=== PATIENT | male | born 1940 | race Caucasian/White ===

== ENCOUNTER → 2018-06-05 | Outpatient (CLI) | payer MEDICARE, BC ==
[~2018-06-05] MED LIST: ALBU90OI INH; ALPR.5 PO; ASCO500 PO; ASPI81CH PO; ASPI81EC; ASPI81EC PO; CALCAVITDA PO; CALGLU500; CEPH500 PO; CYCL10 PO; FISH1000 PO; FOLI1 PO; FOLI400; GLIP5 PO; IBUP600 PO; IRBE150 PO; LEVSOD100; LEVSOD100 PO; LEVSOD125 PO; LISI10; LISI20 PO; LORA1 PO; LOSA25 PO; METF500; METF500 PO; MULVITA; MULVITMIND PO; NIAC250ER; Norco 5-325 Ta1 EACH PO; PRAV20; PRAV20 PO; PYRI100 PO; RXLORA1 PO; SITA100T2 PO; TOCO400; TOCO400 PO; [UNRECOGNIZED DRUG - CODE] PO
== END | disposition home or self-care (01) ==
LOC: LAB SHORT 11:40 → PLD 11:40
DX: D22.4 Melanocytic nevi of scalp and neck (principal)
CPT/HCPCS: 88305

== ENCOUNTER 2018-11-28 05:37 | Emergency (ER) | payer MEDICARE, BC ==
[~2018-11-28] VITALS: Ht 172.7 cm; Wt 82.5 kg
[~2018-11-28 05:37] MED LIST changes: -ASPI81CH PO; -LEVSOD125 PO; -PRAV20 PO; -[UNRECOGNIZED DRUG - CODE] PO
[2018-11-28 06:16] LABS: BASOPHILS ABSOLUTE AUTO 0.04 K/mm3 (0.00-0.23); BASOPHILS PERCENT AUTO 0 % (0-2); EOSINOPHILS ABSOLUTE AUTO 0.25 K/mm3 (0.00-0.68); EOSINOPHILS PERCENT AUTO 2 % (0-6); Hematocrit 43.6 % (37.0-53.0); Hemoglobin 15.1 g/dL (13.5-17.5); IMMATURE GRAN ABSOLUTE AUTO 0.05 K/mm3 (0.00-0.10); IMMATURE GRAN PERCENT AUTO 0 % (0-1); LYMPHOCYTES ABSOLUTE AUTO 0.72 K/mm3 (0.84-5.20); LYMPHOCYTES PERCENT AUTO 6 % (21-46); MONOCYTES ABSOLUTE AUTO 0.92 K/mm3 (0.16-1.47); MONOCYTES PERCENT AUTO 8 % (4-13); Mean Corpuscular HGB 31.1 pg (26.0-34.0); Mean Corpuscular HGB Conc 34.6 g/dL (31.5-36.5); Mean Corpuscular Volume 90 fL (80-100); Mean Platelet Volume 9.2 fL (9.1-12.4); NEUTROPHILS ABSOLUTE AUTO 9.79 K/mm3 (1.96-9.15); NEUTROPHILS PERCENT AUTO 83 % (41-73); Platelet Count 222 K/mm3 (150-400); RDW Standard Deviation 39.6 fL (35.1-46.3); Red Blood Cell Count 4.85 M/mm3 (4.30-5.90); White Blood Cell Count 11.77 K/mm3 (4.00-11.30)
[2018-11-28 06:34] LABS: Alanine Aminotransfer (ALT/SGP 26 U/L (12-78); Albumin, Blood 3.4 g/dL (3.4-5.0); Albumin/Globulin Ratio 1.1 (0.8-1.8); Alk Phos 51 U/L (50-136); Anion Gap 7 mmol/L (6-16); Aspartate Aminotrans (AST/SGOT 14 U/L (12-37); Bilirubin, Total 0.5 mg/dL (0.1-1.0); Blood Urea Nitrogen 20 mg/dL (8-24); Bun/Creatinine Ratio 18.5 (12.0-20.0); CO2, Blood 30 mmol/L (21-32); Calcium, Blood 8.2 mg/dL (8.5-10.1); Chloride, Blood 100 mmol/L (98-108); Creatinine, Blood 1.08 mg/dL (0.60-1.20); Globulin, Blood 3.1 g/dL (2.2-4.0); Glomerular Filtration Rate >60 (60-); Glucose, Blood 280 mg/dL (70-99); Potassium, Blood 3.8 mmol/L (3.5-5.5); Sodium, Blood 137 mmol/L (136-145); Total Protein, Blood 6.5 g/dL (6.4-8.2); Troponin I <0.015 ng/mL (0.000-0.040)
[2018-11-28] MEDS ORDERED: ALBU90OI6 INH (07:05)
== END 2018-11-28 07:50 | disposition home or self-care (01) ==
LOC: ER 05:37
PROVIDERS: Emergency Medicine
DX: J40 Bronchitis, not specified as acute or chronic (principal); E11.9 Type 2 diabetes mellitus without complications; I10 Essential (primary) hypertension; Z88.2 Allergy status to sulfonamides; Z79.82 Long term (current) use of aspirin; Z79.899 Other long term (current) drug therapy; Z79.84 Long term (current) use of oral hypoglycemic drugs
CPT/HCPCS: 36415; 71046; 80053; 83880; 84484; 85025; 93005; 93010; 94640; 96374; 99285-25; J2930

== ENCOUNTER 2018-12-06 18:28 | Emergency (ER) | payer MEDICARE, BC ==
[~2018-12-06] VITALS: Ht 172.7 cm; Wt 82.5 kg
[~2018-12-06 18:28] MED LIST changes: +ALBU90OI6 INH
[2018-12-06 19:05] LABS: BASOPHILS ABSOLUTE AUTO 0.07 K/mm3 (0.00-0.23); BASOPHILS PERCENT AUTO 0 % (0-2); EOSINOPHILS ABSOLUTE AUTO 0.13 K/mm3 (0.00-0.68); EOSINOPHILS PERCENT AUTO 1 % (0-6); Hematocrit 47.4 % (37.0-53.0); Hemoglobin 16.5 g/dL (13.5-17.5); IMMATURE GRAN ABSOLUTE AUTO 0.09 K/mm3 (0.00-0.10); IMMATURE GRAN PERCENT AUTO 1 % (0-1); LYMPHOCYTES ABSOLUTE AUTO 1.05 K/mm3 (0.84-5.20); LYMPHOCYTES PERCENT AUTO 6 % (21-46); MONOCYTES ABSOLUTE AUTO 0.69 K/mm3 (0.16-1.47); MONOCYTES PERCENT AUTO 4 % (4-13); Mean Corpuscular HGB 31.4 pg (26.0-34.0); Mean Corpuscular HGB Conc 34.8 g/dL (31.5-36.5); Mean Corpuscular Volume 90 fL (80-100); Mean Platelet Volume 9.2 fL (9.1-12.4); NEUTROPHILS ABSOLUTE AUTO 14.34 K/mm3 (1.96-9.15); NEUTROPHILS PERCENT AUTO 88 % (41-73); Platelet Count 240 K/mm3 (150-400); RDW Coefficient Variation 11.9 % (11.7-14.2); RDW Standard Deviation 38.9 fL (35.1-46.3); Red Blood Cell Count 5.25 M/mm3 (4.30-5.90); White Blood Cell Count 16.37 K/mm3 (4.00-11.30)
[2018-12-06 19:38] LABS: Alanine Aminotransfer (ALT/SGP 30 U/L (12-78); Albumin, Blood 4.1 g/dL (3.4-5.0); Albumin/Globulin Ratio 1.2 (0.8-1.8); Alk Phos 61 U/L (50-136); Anion Gap 6 mmol/L (6-16); Aspartate Aminotrans (AST/SGOT 20 U/L (12-37); Bilirubin, Total 0.8 mg/dL (0.1-1.0); Blood Urea Nitrogen 15 mg/dL (8-24); Bun/Creatinine Ratio 12.3 (12.0-20.0); CO2, Blood 29 mmol/L (21-32); Chloride, Blood 97 mmol/L (98-108); Creatinine, Blood 1.22 mg/dL (0.60-1.20); Globulin, Blood 3.4 g/dL (2.2-4.0); Glomerular Filtration Rate >60 (60-); Glucose, Blood 188 mg/dL (70-99); Potassium, Blood 3.8 mmol/L (3.5-5.5); Sodium, Blood 132 mmol/L (136-145); Total Protein, Blood 7.5 g/dL (6.4-8.2)
[2018-12-06 19:39] LABS: Troponin I <0.015 ng/mL (0.000-0.040)
[2018-12-06 21:07] LABS: Source, Urine Clean Catch
[2018-12-06 21:10] LABS: Bilirubin, Urine Neg (Neg); Blood, Urine Neg (Neg); Glucose Qualitative, Urine Neg (Neg); Ketones, Urine Neg (Neg); Leukocyte Esterase, Urine Neg (Neg); Nitrite, Urine Neg (Neg); Protein, Urine Neg (Neg); Urobilinogen, Urine NORM (Normal)
[2018-12-06 21:13] LABS: Appearance, Urine Clear (Clear); Color, Urine Yellow (P-Yellow)
[2018-12-06] MEDS ORDERED: SITA100T2 PO (21:19)
[2018-12-06] MEDS ORDERED: GLIP5 PO (21:19)
[2018-12-06] MEDS ORDERED: LEVSOD125 PO (21:19)
[2018-12-06] MEDS ORDERED: Pravachol40 MG PO (21:19)
[2018-12-06] MEDS ORDERED: LOSARTAN-HCTZ1 EAC2 PO (21:20)
[2018-12-06] MEDS ORDERED: METF500C PO (21:20)
[2018-12-06] MEDS ORDERED: ALBU90OI61 INH (21:21)
[2018-12-06] MEDS ORDERED: TAMSULOSIN HCL0.4 MG PO (21:22)
[2018-12-06] MEDS ORDERED: FINA5 PO (21:22)
[2018-12-06] MEDS ORDERED: Aspirin EC81 MG PO (21:34)
[2018-12-06] MEDS ORDERED: CEFD300 PO (22:17)
[2018-12-06] MEDS ORDERED: Zithromax250 MG PO (22:17)
[2018-12-06 23:38] LABS: Adenovirus Not Detected (NOT DETECT); Bordetella pertussis Not Detected (NOT DETECT); Chlamydophila pneumoniae Not Detected (NOT DETECT); Coronavirus 229E Not Detected (NOT DETECT); Coronavirus HKU1 Not Detected (NOT DETECT); Coronavirus NL63 Not Detected (NOT DETECT); Coronavirus OC43 Not Detected (NOT DETECT); Human Metapneumovirus Not Detected (NOT DETECT); Human Rhinovirus/Enterovirus Detected (NOT DETECT); Influenza A Not Detected (NOT DETECT); Influenza A/2009-H1 Not Detected (NOT DETECT); Influenza A/H1 Not Detected (NOT DETECT); Influenza A/H3 Not Detected (NOT DETECT); Influenza B Not Detected (NOT DETECT); Mycoplasma pneumoniae Not Detected (NOT DETECT); Parainfluenza Virus 1 Not Detected (NOT DETECT); Parainfluenza Virus 2 Not Detected (NOT DETECT); Parainfluenza Virus 3 Not Detected (NOT DETECT); Parainfluenza Virus 4 Not Detected (NOT DETECT); Respiratory Syncytial Virus Not Detected (NOT DETECT)
== END 2018-12-06 22:45 | disposition home or self-care (01) ==
LOC: ER 18:28
PROVIDERS: Emergency Medicine; Nurse Practitioner Acute Care
DX: J18.9 Pneumonia, unspecified organism (principal); E11.9 Type 2 diabetes mellitus without complications; I10 Essential (primary) hypertension; Z87.891 Personal history of nicotine dependence
CPT/HCPCS: 0099U; 36415; 71046; 80053; 81003; 83605; 84145; 84484; 85025; 87040; 93005; 93010; 94640; 96361; 96365; 96367; 99285-25; J0456; J0696; J7030; J7050

== ENCOUNTER 2020-02-12 07:48 | Emergency (ER) | payer MEDICARE, BC ==
[~2020-02-12] VITALS: Ht 170.2 cm; Wt 72.6 kg
[~2020-02-12 07:48] MED LIST changes: +ALBU90OI61 INH; +ALPR.25 PO; +Aspirin EC81 MG PO; +Bactrim Ds Tab1 EACH PO; +CEFD300 PO; +CIPR500 PO; +FINA5 PO; +LEVSOD125 PO; +LOSARTAN-HCTZ1 EAC2 PO; +METF500C PO; +Pravachol40 MG PO; +SERT50; +SITA25T2; +TAMSULOSIN HCL0.4 MG PO; +TRAM50; +Zithromax250 MG PO
[2020-02-12] MEDS ORDERED: OXYC5 PO (09:46)
== END 2020-02-12 10:24 | disposition home or self-care (01) ==
LOC: ER 07:48
DX: S82.832A Other fracture of upper and lower end of left fibula, initial encounter for closed fracture (principal); S93.401A Sprain of unspecified ligament of right ankle, initial encounter; I10 Essential (primary) hypertension; E11.9 Type 2 diabetes mellitus without complications; Z79.84 Long term (current) use of oral hypoglycemic drugs; Z79.82 Long term (current) use of aspirin; Z79.899 Other long term (current) drug therapy; X58.XXXA Exposure to other specified factors, initial encounter
CPT/HCPCS: 29515; 73610; 99283-25

== ENCOUNTER 2020-03-12 14:05 | Inpatient (IN) | payer MEDICARE, BC ==
[~2020-03-12] VITALS: Ht 170.2 cm; Wt 74.0 kg
[~2020-03-12 14:05] MED LIST changes: +OXYC5 PO
[2020-03-12 14:54] LABS: Source, Urine Clean Catch
[2020-03-12 14:57] LABS: BASOPHILS ABSOLUTE AUTO 0.04 K/mm3 (0.00-0.23); BASOPHILS PERCENT AUTO 0 % (0-2); Base Excess Venous 0.8 mmol/L; Bicarbonate Venous 24.8 mmol/L (24.0-30.0); EOSINOPHILS ABSOLUTE AUTO 0.05 K/mm3 (0.00-0.68); EOSINOPHILS PERCENT AUTO 1 % (0-6); Hemoglobin 14.6 g/dL (13.5-17.5); IMMATURE GRAN ABSOLUTE AUTO 0.06 K/mm3 (0.00-0.10); IMMATURE GRAN PERCENT AUTO 1 % (0-1); LYMPHOCYTES ABSOLUTE AUTO 1.84 K/mm3 (0.84-5.20); LYMPHOCYTES PERCENT AUTO 20 % (21-46); MONOCYTES ABSOLUTE AUTO 0.74 K/mm3 (0.16-1.47); MONOCYTES PERCENT AUTO 8 % (4-13); Mean Corpuscular HGB 29.2 pg (26.0-34.0); Mean Corpuscular HGB Conc 33.2 g/dL (31.5-36.5); Mean Corpuscular Volume 88 fL (80-100); Mean Platelet Volume 10.2 fL (9.1-12.4); NEUTROPHILS ABSOLUTE AUTO 6.46 K/mm3 (1.96-9.15); NEUTROPHILS PERCENT AUTO 70 % (41-73); PCO2 Venous 44.3 mmHg (38-42); PO2 Venous 82.1 mmHg (38-42); Platelet Count 338 K/mm3 (150-400); RDW Coefficient Variation 14.4 % (11.7-14.2); RDW Standard Deviation 46.1 fL (35.1-46.3); White Blood Cell Count 9.19 K/mm3 (4.00-11.30); pH Blood Venous 7.38 (7.34-7.37)
[2020-03-12 15:00] LABS: Bilirubin, Urine Neg (Neg); Blood, Urine 2+ (Neg); Glucose Qualitative, Urine 4+ (Neg); Ketones, Urine 1+ (Neg); Leukocyte Esterase, Urine 3+ (Neg); Nitrite, Urine Pos (Neg); Protein, Urine Neg (Neg); Urobilinogen, Urine NORM (Normal)
[2020-03-12 15:28] LABS: Appearance, Urine Cloudy (Clear); Color, Urine Pale Yellow (P-Yellow)
[2020-03-12 15:29] LABS: White Blood Cells, Urine TNTC /hpf (0-5)
[2020-03-12 15:30] LABS: Bacteria Many /hpf; Squamous Epithelial Cells Not Seen /hpf (Few)
[2020-03-12 15:40] LABS: Troponin I <0.015 ng/mL (0.000-0.040)
[2020-03-12] MEDS ORDERED: GLIP5ER PO (15:40)
[2020-03-12] MEDS ORDERED: Pravachol40 MG PO (15:40)
[2020-03-12] MEDS ORDERED: SYNTHROID125 MC1 PO (15:40)
[2020-03-12] MEDS ORDERED: FINA5 PO (15:40)
[2020-03-12] MEDS ORDERED: LOSARTAN-HCTZ1 EAC6 PO (15:41)
[2020-03-12] MEDS ORDERED: METFORMIN HCL500 M3 PO (15:41)
[2020-03-12] MEDS ORDERED: ZOLOFT50 MG PO (15:41)
[2020-03-12 15:42] LABS: Alanine Aminotransfer (ALT/SGP 80 U/L (12-78); Albumin, Blood 3.3 g/dL (3.4-5.0); Albumin/Globulin Ratio 0.8 (0.8-1.8); Alk Phos 101 U/L (50-136); Anion Gap 9 mmol/L (6-16); Aspartate Aminotrans (AST/SGOT 40 U/L (12-37); Bilirubin, Total 0.4 mg/dL (0.1-1.0); Blood Urea Nitrogen 42 mg/dL (8-24); Bun/Creatinine Ratio 28.8 (12.0-20.0); CO2, Blood 26 mmol/L (21-32); Calcium, Blood 9.1 mg/dL (8.5-10.1); Chloride, Blood 91 mmol/L (98-108); Creatinine, Blood 1.46 mg/dL (0.60-1.20); Globulin, Blood 4.1 g/dL (2.2-4.0); Glomerular Filtration Rate 49 (60-); Glucose, Blood 780 mg/dL (70-99); Potassium, Blood 4.9 mmol/L (3.5-5.5); Sodium, Blood 126 mmol/L (136-145); Total Protein, Blood 7.4 g/dL (6.4-8.2)
[2020-03-12 17:40] LABS: Glucose, Blood 406 mg/dL (70-99)
[2020-03-13 06:12] LABS: Anion Gap 4 mmol/L (6-16); Blood Urea Nitrogen 30 mg/dL (8-24); Bun/Creatinine Ratio 24.8 (12.0-20.0); CO2, Blood 29 mmol/L (21-32); Calcium, Blood 8.8 mg/dL (8.5-10.1); Chloride, Blood 102 mmol/L (98-108); Creatinine, Blood 1.21 mg/dL (0.60-1.20); Glomerular Filtration Rate >60 (60-); Glucose, Blood 303 mg/dL (70-99); Potassium, Blood 4.1 mmol/L (3.5-5.5); Sodium, Blood 135 mmol/L (136-145)
[2020-03-14] MEDS ORDERED: LEVFLO500 PO (11:49)
== END 2020-03-14 12:30 | disposition home or self-care (01) | DRG 698 ==
LOC: ER 14:05 → ERHOLD 15:06 → MEDS 18:09 → ENPENDDIS 03-13 10:51 → MEDS 03-14 09:26 → ERHOLD 03-14 09:26 → MEDS 03-14 09:26 → ER 03-14 15:06
PROVIDERS: Emergency Medicine; Physician Assistant; ADMIT Internal Medicine
DX: T83.511A Infection and inflammatory reaction due to indwelling urethral catheter, initial encounter (principal); E11.00 Type 2 diabetes mellitus with hyperosmolarity without nonketotic hyperglycemic-hyperosmolar coma (NKHHC); N39.0 Urinary tract infection, site not specified; Z85.46 Personal history of malignant neoplasm of prostate; Z87.891 Personal history of nicotine dependence; E86.0 Dehydration; E78.5 Hyperlipidemia, unspecified; E03.9 Hypothyroidism, unspecified; Z85.820 Personal history of malignant melanoma of skin; Z79.82 Long term (current) use of aspirin; N18.30 Chronic kidney disease, stage 3 unspecified; E11.22 Type 2 diabetes mellitus with diabetic chronic kidney disease; I12.9 Hypertensive chronic kidney disease with stage 1 through stage 4 chronic kidney disease, or unspecified chronic kidney disease; B96.1 Klebsiella pneumoniae [K. pneumoniae] as the cause of diseases classified elsewhere; B96.4 Proteus (mirabilis) (morganii) as the cause of diseases classified elsewhere; Z79.84 Long term (current) use of oral hypoglycemic drugs
CPT/HCPCS: 36415; 70450; 80048; 80053; 81001; 82010; 82803; 82947; 83036; 84484; 85025; 87077; 87086; 87186; 93005; 93010; 96361; 96365; 96372; 96376; 99285-25; A9270; A9270-GY; G0378; J0696; J1650; J1815; J7030; J7120

== ENCOUNTER 2020-06-14 14:44 | Inpatient (IN) | payer MEDICARE, BC ==
[~2020-06-14] VITALS: Ht 170.2 cm; Wt 76.6 kg
[~2020-06-14 14:44] MED LIST changes: +GLIP5ER PO; +LEVFLO500 PO; +LOSARTAN-HCTZ1 EAC6 PO; +SYNTHROID125 MC1 PO; +ZOLOFT50 MG PO
[2020-06-14 15:06] LABS: BASOPHILS ABSOLUTE AUTO 0.06 K/mm3 (0.00-0.23); BASOPHILS PERCENT AUTO 0 % (0-2); EOSINOPHILS ABSOLUTE AUTO 0.01 K/mm3 (0.00-0.68); EOSINOPHILS PERCENT AUTO 0 % (0-6); Hematocrit 42.9 % (37.0-53.0); Hemoglobin 14.2 g/dL (13.5-17.5); IMMATURE GRAN ABSOLUTE AUTO 0.09 K/mm3 (0.00-0.10); IMMATURE GRAN PERCENT AUTO 1 % (0-1); LYMPHOCYTES ABSOLUTE AUTO 1.03 K/mm3 (0.84-5.20); LYMPHOCYTES PERCENT AUTO 6 % (21-46); MONOCYTES ABSOLUTE AUTO 1.55 K/mm3 (0.16-1.47); MONOCYTES PERCENT AUTO 9 % (4-13); Mean Corpuscular HGB 30.5 pg (26.0-34.0); Mean Corpuscular HGB Conc 33.1 g/dL (31.5-36.5); Mean Corpuscular Volume 92 fL (80-100); Mean Platelet Volume 9.8 fL (9.1-12.4); NEUTROPHILS PERCENT AUTO 85 % (41-73); Platelet Count 273 K/mm3 (150-400); RDW Coefficient Variation 12.6 % (11.7-14.2); RDW Standard Deviation 42.8 fL (35.1-46.3); Red Blood Cell Count 4.65 M/mm3 (4.30-5.90); White Blood Cell Count 18.14 K/mm3 (4.00-11.30)
[2020-06-14 15:41] LABS: Magnesium, Blood 1.6 mg/dL (1.6-2.4)
[2020-06-14 15:43] LABS: Troponin I <0.015 ng/mL (0.000-0.040)
[2020-06-14 16:09] LABS: Alanine Aminotransfer (ALT/SGP 32 U/L (12-78); Albumin, Blood 2.8 g/dL (3.4-5.0); Albumin/Globulin Ratio 0.6 (0.8-1.8); Alk Phos 73 U/L (50-136); Anion Gap 13 mmol/L (6-16); Aspartate Aminotrans (AST/SGOT 40 U/L (12-37); Bilirubin, Total 0.7 mg/dL (0.1-1.0); Blood Urea Nitrogen 49 mg/dL (8-24); Bun/Creatinine Ratio 41.2 (12.0-20.0); CO2, Blood 20 mmol/L (21-32); Calcium, Blood 9.3 mg/dL (8.5-10.1); Chloride, Blood 96 mmol/L (98-108); Creatinine, Blood 1.19 mg/dL (0.60-1.20); Globulin, Blood 4.4 g/dL (2.2-4.0); Glomerular Filtration Rate >60 (60-); Glucose, Blood 544 mg/dL (70-99); Potassium, Blood 5.2 mmol/L (3.5-5.5); Sodium, Blood 129 mmol/L (136-145); Total Protein, Blood 7.2 g/dL (6.4-8.2)
[2020-06-14 17:21] LABS: Source, Urine Clean Catch
[2020-06-14 17:35] LABS: Appearance, Urine Cloudy (Clear); Bilirubin, Urine Neg (Neg); Blood, Urine 4+ (Neg); Color, Urine Yellow (P-Yellow); Glucose Qualitative, Urine 4+ (Neg); Ketones, Urine Neg (Neg); Leukocyte Esterase, Urine 3+ (Neg); Nitrite, Urine Neg (Neg); Protein, Urine 3+ (Neg); Urobilinogen, Urine NORM (Normal)
[2020-06-14 17:37] LABS: White Blood Cells, Urine TNTC /hpf (0-5)
[2020-06-14 17:38] LABS: Bacteria Mod /hpf; Squamous Epithelial Cells Not Seen /hpf (Few)
[2020-06-14] MEDS ORDERED: Doxepin HC10 MG/1 ML PO (17:51)
[2020-06-14] MEDS ORDERED: REPAGLINIDE0.5 MG PO (17:52)
[2020-06-14] MEDS ORDERED: SERT100 PO (17:52)
[2020-06-14] MEDS ORDERED: TOUJEO SOL300 UNIT/2 SC (17:53)
[2020-06-14 18:03] LABS: Glucose, Blood 504 mg/dL (70-99)
[2020-06-15 02:53] LABS: BASOPHILS ABSOLUTE AUTO 0.04 K/mm3 (0.00-0.23); BASOPHILS PERCENT AUTO 0 % (0-2); EOSINOPHILS PERCENT AUTO 0 % (0-6); Hematocrit 36.5 % (37.0-53.0); IMMATURE GRAN ABSOLUTE AUTO 0.08 K/mm3 (0.00-0.10); IMMATURE GRAN PERCENT AUTO 1 % (0-1); LYMPHOCYTES ABSOLUTE AUTO 1.98 K/mm3 (0.84-5.20); LYMPHOCYTES PERCENT AUTO 11 % (21-46); MONOCYTES ABSOLUTE AUTO 1.84 K/mm3 (0.16-1.47); MONOCYTES PERCENT AUTO 10 % (4-13); Mean Corpuscular HGB 30.7 pg (26.0-34.0); Mean Corpuscular HGB Conc 32.9 g/dL (31.5-36.5); Mean Corpuscular Volume 93 fL (80-100); Mean Platelet Volume 9.5 fL (9.1-12.4); NEUTROPHILS ABSOLUTE AUTO 13.72 K/mm3 (1.96-9.15); NEUTROPHILS PERCENT AUTO 78 % (41-73); Platelet Count 250 K/mm3 (150-400); RDW Coefficient Variation 12.8 % (11.7-14.2); RDW Standard Deviation 43.9 fL (35.1-46.3); Red Blood Cell Count 3.91 M/mm3 (4.30-5.90); White Blood Cell Count 17.66 K/mm3 (4.00-11.30)
[2020-06-15 03:08] LABS: Calcium, Blood 8.6 mg/dL (8.5-10.1); Creatinine, Blood 1.26 mg/dL (0.60-1.20); Potassium, Blood 3.7 mmol/L (3.5-5.5)
--- NOTE | 2020-06-15 06:33 | NUR ---
PT A&Ox4 THROUGHOUT SHIFT. NO RESP DISTRESS OBSERVED, SATS >93% ON R/A. TELE SR IN 70s. NO C/O CHEST PAIN/PRESSURE/SOB. MANAGER COSMETIC URINARY CATH IN PLACE, PATENT WITH CLOUDY YELLOW URINE. PT REPOSITIONS SELF IN BED NEEDED. DID NOT STAND AT BEDSIDE, STATED HE STILL FEELS WEEK. DENIES ANY PAIN, TOLERATING PO FLUIDS WITHOUT DIFFICULTY. WILL CONTINUE TO MONITOR.
--- NOTE | 2020-06-15 07:31 | NUR ---
ASSUMED CARE: PT RESTING IN BED, IVF RUNNING. AWAKE AND TALKING TO STAFF. DENIES NEEDS OR CONCERN, NSR ON TELE AT THIS TIME.
--- NOTE | 2020-06-15 10:17 | NUR ---
PHYSICAL THERAPY AT BEDSIDE. PT'S DAUGHTER HAS BEEN UPDATED ON PROGRESS SO FAR THIS SHIFT.
--- NOTE | 2020-06-15 19:11 | NUR ---
SHIFT SUMMARY: PT RESTING QUIETLY IN BED. NS AT 75MLS/HR AT THIS TIME. ALERT AND ORIENTED, COOPERATIVE. WORKED WITH PHYSICAL THERAPY AND OCCUPATIONAL THERAPY THIS SHIFT. MED/TELE STATUS AT THIS TIME. ABDULLAHI WITH CLOUDY YELLOW URINE. NO ACUTE NEEDS OR CONCERNS AT THIS TIME.
[2020-06-16 08:45] LABS: Hematocrit 35.8 % (37.0-53.0); Hemoglobin 11.6 g/dL (13.5-17.5); Mean Corpuscular HGB 30.7 pg (26.0-34.0); Mean Corpuscular HGB Conc 32.4 g/dL (31.5-36.5); Mean Corpuscular Volume 95 fL (80-100); Mean Platelet Volume 9.9 fL (9.1-12.4); Platelet Count 252 K/mm3 (150-400); RDW Coefficient Variation 12.9 % (11.7-14.2); RDW Standard Deviation 45.1 fL (35.1-46.3); Red Blood Cell Count 3.78 M/mm3 (4.30-5.90); White Blood Cell Count 13.16 K/mm3 (4.00-11.30)
[2020-06-16 08:47] LABS: Anion Gap 2 mmol/L (6-16); Blood Urea Nitrogen 27 mg/dL (8-24); Bun/Creatinine Ratio 24.1 (12.0-20.0); CO2, Blood 29 mmol/L (21-32); Calcium, Blood 8.6 mg/dL (8.5-10.1); Chloride, Blood 108 mmol/L (98-108); Creatinine, Blood 1.12 mg/dL (0.60-1.20); Glomerular Filtration Rate >60 (60-); Glucose, Blood 162 mg/dL (70-99); Potassium, Blood 3.6 mmol/L (3.5-5.5); Sodium, Blood 139 mmol/L (136-145)
[2020-06-16 09:25] LABS: BASOPHILS PERCENT MAN 0 % (0-2); EOSINOPHILS ABSOLUTE MAN 0.26 K/mm3 (0.00-0.68); EOSINOPHILS PERCENT MAN 2 % (0-6); LYMPHOCYTES ABSOLUTE MAN 2.23 K/mm3 (0.84-5.20); LYMPHOCYTES PERCENT MAN 17 % (21-46); MONOCYTES ABSOLUTE MAN 0.92 K/mm3 (0.16-1.47); MONOCYTES PERCENT MAN 7 % (4-13); NEUTROPHILS ABSOLUTE MAN 9.73 K/mm3 (1.96-9.15); SEG NEUTROPHILS PERCENT MAN 74 % (41-73); TOTAL CELLS COUNTED 100
--- NOTE | 2020-06-16 10:49 | NUR ---
AM NOTE PT ALERT AND ORIENTED. RESTING IN BED. DENIES PAIN, SOB, NAUSEA, AND LIGHT HEADEDNESS. DENIES NEEDS THIS AM. CRITICAL MICRO NOTED, NOTIFIED DR Mauricio GARCIA; NEW ORDERS FOR CONTACT ISOLATION AND ORDER FOR CHRONIC ABDULLAHI CATHETER. VSS. WILL CONTINUE TO MONITOR.
--- NOTE | 2020-06-16 17:48 | NUR ---
TRANSFER NOTE PT A&Ox4; CALM AND COOPERATIVE WITH CARE. PT UP TO BATHROOM WITH SBA. PT DENIES PAIN, CHEST PAIN, SOB, NASUEA OR DIZZINESS. PT RECEIVING IV ANTIBIOTICS. CHRONIC ABDULLAHI IN PLACE AND DRAINING. VSS. NO OTHER ACUTE CHANGES NOTED DURING SHIFT. REPORT GIVEN TO MONICA DUKES ASSUMING CARE OF PT. PT LEFT ROOM VIA WHEELCHAIR AT 1746.
--- NOTE | 2020-06-16 19:18 | NUR ---
RECEIVED TO RM [id number] FROM PCU AT 1810. HE TRANSFERRED TO THE BED FROM THE W/C WITH SBA. ABDULLAHI IN PLACE. IT WAS EMPTIED JUST BEFORE ARRIVAL. HE IS PLEASANT AND APPROPRIATE IN CONVERSATION. BED ALARM PLACED. CALL LIGHT IN REACH. PHONE IN REACH. HE ALREADY RECEIVED A PHONE CALL. TELE DC'D. DURING BEDSIDE REPORT I REMEMBERED I SAW CONTINUOUS IVF ORDER ON THE EMAR WHEN I WAS LOOKING HIM UP. THIS WAS NOT REPORTED BUT I CHECKED WITH HIS PCU NURSE. IT IS TO CONTINUE. I COMMUNICATED THIS TO THE CASE CONSULTANT RN ALEJANDRINA. SHE WILL RESUME HIS IVF'S. SHE ALSO UNDERSTANDS HIS NEXT DOSE OF MEROPENEM WILL BE DUE TOMORROW MORNING.
--- NOTE | 2020-06-17 04:32 | NUR ---
SHIFT SUMMARY ADMITTED FOR SEVERE SEPSIS. FOUND TO HAVE UTI FROM CHRONIC ABDULLAHI. DNR CODE. CONTACT PRECAUTIONS FOR ESBL IN URINE. NS IS INFUSING @ 75 ML/HR. IV ANTIB RX ARE SCHEDULED. PLAN IS FOR HOPEFUL DC HOME ON IV ANTIB RX IF ARRANGEMENTS CAN BE MADE. IS AT HOME ON HOSPICE CARE. NO NEW CONCERNS.
--- NOTE | 2020-06-17 16:27 | NUR ---
PATIENT IS PLEASANT AND COOPERATIVE WITH STAFF. HE CONTINUES ON IV ABX WITHOUT S/SX OF ADVERSE REACTIONS NOTED OR REPORTED. THE PATIENT IS PRETTY STEADY ON HIS FEET AND AMBULATES IN HIS ROOM QUITE WELL WITH SBA. DENIES PAIN AND DISCOMFORT. COOPERATIVE WITH CARE PROVIDED. PATIENT IS RESTING IN HIS BED AT THIS TIME. CALL LIGHT IS WITHIN REACH.
--- NOTE | 2020-06-17 17:00 | NUR ---
Spiritual care note: Mr. Haywood is very pleasant, smiles easily and expresses hope for complete recovery and return to baseline. He feels well loved and supported by his dtr and denied conerns/pain. Prayer provided. I will remain available.
--- NOTE | 2020-06-18 04:07 | NUR ---
SHIFT SUMMARY ADMITTED FOR SEVERE SEPSIS/UTI (CHRONIC ABDULLAHI IN PLACE). DNR CODE. CONTACT PRECAUTIONS FOR ESBL IN URINE. PLAN IS FOR IV ANTIBIOTICS AT HOME. PT IS HOPEFUL FOR DC TODAY. HIS IS ON HOSPICE HERSELF AND IN THE CARE OF FAMILY. NS INFUSING @ 75 ML/HR. POWERGLIDE IS POSITIONAL IN EMIGDIO. NO NEW CONCERNS THIS SHIFT
[2020-06-18 09:04] LABS: BASOPHILS ABSOLUTE AUTO 0.04 K/mm3 (0.00-0.23); BASOPHILS PERCENT AUTO 0 % (0-2); EOSINOPHILS ABSOLUTE AUTO 0.24 K/mm3 (0.00-0.68); EOSINOPHILS PERCENT AUTO 3 % (0-6); Hematocrit 36.1 % (37.0-53.0); Hemoglobin 12.2 g/dL (13.5-17.5); IMMATURE GRAN ABSOLUTE AUTO 0.06 K/mm3 (0.00-0.10); IMMATURE GRAN PERCENT AUTO 1 % (0-1); LYMPHOCYTES ABSOLUTE AUTO 2.03 K/mm3 (0.84-5.20); LYMPHOCYTES PERCENT AUTO 23 % (21-46); MONOCYTES PERCENT AUTO 11 % (4-13); Mean Corpuscular HGB 30.9 pg (26.0-34.0); Mean Corpuscular HGB Conc 33.8 g/dL (31.5-36.5); Mean Corpuscular Volume 91 fL (80-100); Mean Platelet Volume 9.6 fL (9.1-12.4); NEUTROPHILS ABSOLUTE AUTO 5.66 K/mm3 (1.96-9.15); NEUTROPHILS PERCENT AUTO 63 % (41-73); Platelet Count 322 K/mm3 (150-400); RDW Coefficient Variation 12.5 % (11.7-14.2); RDW Standard Deviation 41.8 fL (35.1-46.3); Red Blood Cell Count 3.95 M/mm3 (4.30-5.90); White Blood Cell Count 9.03 K/mm3 (4.00-11.30)
[2020-06-18 09:24] LABS: Anion Gap 6 mmol/L (6-16); Blood Urea Nitrogen 17 mg/dL (8-24); Bun/Creatinine Ratio 19.2 (12.0-20.0); CO2, Blood 26 mmol/L (21-32); Calcium, Blood 8.1 mg/dL (8.5-10.1); Chloride, Blood 108 mmol/L (98-108); Creatinine, Blood 0.89 mg/dL (0.60-1.20); Glomerular Filtration Rate >60 (60-); Glucose, Blood 179 mg/dL (70-99); Potassium, Blood 3.6 mmol/L (3.5-5.5); Sodium, Blood 140 mmol/L (136-145)
[2020-06-18] MEDS ORDERED: MEROPENEM1 GM IV (13:26)
--- NOTE | 2020-06-18 15:37 | NUR ---
SHIFT SUMMARY SAUL WAS DISCHARGED WITH HIS DAUGHTER BY CAR TO GO HOME. THOROUGH EDUCATION WAS DONE BY AUGIE VELA AND MYSELF ABOUT HOW TO ADMINISTER IV MEROPENEM TONIGHT AND FREQUENCY AND TECHNIQUE. F/U APPT MADE WITH PCP FOR ONE WEEK FROM TODAY, PT AWARE. NO NEW MEDS. PT WAS ALREADY ON 12 UNITS LANTUS, EDUCATED ON THE FACT THAT WE HAVE BEEN GIVING AT NIGHT, NOT MORNINGS. PIV REMOVED, BUT POWERGLIDE IN RUE LEFT IN PLACE. PCP IS AWARE TO DC IT AFTER IV ABX FINISHED. HH TO COME TO PT'S HOUSE TOMORROW MORNING. DAUGHTER STATES IV ABX ALREADY HAS ARRIVED AT THEIR HOUSE. PAPERWORK REVIEWED. PT WILL CALL IF QUESTIONS
[2020-09-13] MEDS ORDERED: LOSARTAN-HCTZ1 EACH PO (20:41)
[2020-09-13] MEDS ORDERED: ALPR.5 PO (20:41)
[2020-09-13] MEDS ORDERED: Norco 5-325 Ta1 EACH PO (20:42)
[2020-09-13] MEDS ORDERED: ONDA4 PO (20:43)
[2020-09-13] MEDS ORDERED: CODACE30 PO (20:44)
[2020-09-15] MEDS ORDERED: LORA1 PO (11:09)
[2020-09-15] MEDS ORDERED: FENTANYL1 EA10 TOP (11:09)
[2020-09-15] MEDS ORDERED: MORP20L PO (11:10)
== END 2020-06-18 15:07 | disposition home health service (06) | DRG 698 ==
LOC: ER 14:44 → PCU 18:19 → ERHOLD 18:19 → PCU 20:54 → MEDS 06-16 17:53
PROVIDERS: Emergency Medicine; Student in an Organized Health Care Education/Training Program; ADMIT Hospitalist
DX: T83.511A Infection and inflammatory reaction due to indwelling urethral catheter, initial encounter (principal); A41.50 Gram-negative sepsis, unspecified; R65.20 Severe sepsis without septic shock; E87.1 Hypo-osmolality and hyponatremia; J98.11 Atelectasis; N13.30 Unspecified hydronephrosis; Z66 Do not resuscitate; Z20.822 Contact with and (suspected) exposure to COVID-19; E03.9 Hypothyroidism, unspecified; E11.65 Type 2 diabetes mellitus with hyperglycemia; E78.5 Hyperlipidemia, unspecified; E86.0 Dehydration; F32.9 Major depressive disorder, single episode, unspecified; Z23 Encounter for immunization; J44.9 Chronic obstructive pulmonary disease, unspecified; N13.9 Obstructive and reflux uropathy, unspecified; I12.9 Hypertensive chronic kidney disease with stage 1 through stage 4 chronic kidney disease, or unspecified chronic kidney disease; E11.22 Type 2 diabetes mellitus with diabetic chronic kidney disease; N18.31 Chronic kidney disease, stage 3a; N39.0 Urinary tract infection, site not specified; N40.1 Benign prostatic hyperplasia with lower urinary tract symptoms; Z85.46 Personal history of malignant neoplasm of prostate; W18.11XA Fall from or off toilet without subsequent striking against object, initial encounter; Z79.4 Long term (current) use of insulin; Z87.891 Personal history of nicotine dependence
CPT/HCPCS: 36415; 51702; 71046; 76770; 80048; 80053; 81001; 82947; 83605; 83690; 83735; 84145; 84484; 85007; 85025; 85027; 87040; 87077; 87086; 87186; 93005; 93010; 96360-59; 96361-59; 97110; 97116; 97162; 99285-25; A9270; C1751; G0008; J0696; J1650; J1815; J2185; J2543; J7030; J7120; Q2038

== ENCOUNTER 2020-06-20 14:50 | Emergency (ER) | payer MEDICARE, BC ==
[~2020-06-20] VITALS: Ht 170.2 cm; Wt 76.2 kg
[~2020-06-20 14:50] MED LIST changes: +Doxepin HC10 MG/1 ML PO; +MEROPENEM1 GM IV; +REPAGLINIDE0.5 MG PO; +SERT100 PO; +TOUJEO SOL300 UNIT/2 SC
[2020-06-20 17:30] LABS: Source, Urine Catheter
[2020-06-20 17:42] LABS: Appearance, Urine Clear (Clear); Bilirubin, Urine Neg (Neg); Blood, Urine 1+ (Neg); Color, Urine Yellow (P-Yellow); Glucose Qualitative, Urine Neg (Neg); Ketones, Urine Neg (Neg); Leukocyte Esterase, Urine 3+ (Neg); Nitrite, Urine Neg (Neg); Protein, Urine Neg (Neg); Specific Gravity, Urine 1.005 (1.003-1.022); Urobilinogen, Urine NORM (Normal); pH, Urine 6.5 (5.0-8.0)
[2020-06-20 17:50] LABS: Red Blood Cells, Urine 0-2 /hpf (0-2); White Blood Cells, Urine 25-50 /hpf (0-5)
[2020-06-20 17:51] LABS: Bacteria Not Seen /hpf; Squamous Epithelial Cells Not Seen /hpf (Few); Yeast/Fungi Urine Few /hpf
[2020-09-13] MEDS ORDERED: ALPR.5 PO (20:41)
[2020-09-13] MEDS ORDERED: LOSARTAN-HCTZ1 EACH PO (20:41)
[2020-09-13] MEDS ORDERED: Norco 5-325 Ta1 EACH PO (20:42)
[2020-09-13] MEDS ORDERED: ONDA4 PO (20:43)
[2020-09-13] MEDS ORDERED: CODACE30 PO (20:44)
[2020-09-15] MEDS ORDERED: LORA1 PO (11:09)
[2020-09-15] MEDS ORDERED: FENTANYL1 EA10 TOP (11:09)
[2020-09-15] MEDS ORDERED: MORP20L PO (11:10)
== END 2020-06-20 18:05 | disposition home or self-care (01) ==
LOC: ER 14:50
PROVIDERS: Emergency Medicine
DX: N48.89 Other specified disorders of penis (principal); Z79.4 Long term (current) use of insulin; F45.41 Pain disorder exclusively related to psychological factors; E03.9 Hypothyroidism, unspecified; E11.9 Type 2 diabetes mellitus without complications; I10 Essential (primary) hypertension; E78.5 Hyperlipidemia, unspecified
CPT/HCPCS: 51702; 51798; 81001; 87086; 99283-25

== ENCOUNTER 2020-06-29 15:17 | Inpatient (IN) | payer MEDICARE, BC ==
[~2020-06-29] VITALS: Ht 170.2 cm; Wt 74.5 kg
[2020-06-29 17:09] LABS: Source, Urine Catheter
[2020-06-29 17:14] LABS: Appearance, Urine Turbid (Clear); Bilirubin, Urine Neg (Neg); Blood, Urine 5+ (Neg); Color, Urine Yellow (P-Yellow); Glucose Qualitative, Urine Neg (Neg); Ketones, Urine Neg (Neg); Leukocyte Esterase, Urine 3+ (Neg); Nitrite, Urine Pos (Neg); Protein, Urine 4+ (Neg); Urobilinogen, Urine NORM (Normal); pH, Urine 6.5 (5.0-8.0)
[2020-06-29 17:17] LABS: BASOPHILS ABSOLUTE AUTO 0.07 K/mm3 (0.00-0.23); BASOPHILS PERCENT AUTO 0 % (0-2); EOSINOPHILS ABSOLUTE AUTO 0.03 K/mm3 (0.00-0.68); EOSINOPHILS PERCENT AUTO 0 % (0-6); Hematocrit 44.1 % (37.0-53.0); Hemoglobin 14.5 g/dL (13.5-17.5); IMMATURE GRAN PERCENT AUTO 1 % (0-1); LYMPHOCYTES ABSOLUTE AUTO 1.25 K/mm3 (0.84-5.20); LYMPHOCYTES PERCENT AUTO 6 % (21-46); MONOCYTES ABSOLUTE AUTO 1.29 K/mm3 (0.16-1.47); MONOCYTES PERCENT AUTO 7 % (4-13); Mean Corpuscular HGB 30.1 pg (26.0-34.0); Mean Corpuscular HGB Conc 32.9 g/dL (31.5-36.5); Mean Corpuscular Volume 92 fL (80-100); Mean Platelet Volume 9.3 fL (9.1-12.4); NEUTROPHILS ABSOLUTE AUTO 16.78 K/mm3 (1.96-9.15); NEUTROPHILS PERCENT AUTO 86 % (41-73); Platelet Count 508 K/mm3 (150-400); RDW Coefficient Variation 12.8 % (11.7-14.2); RDW Standard Deviation 43.3 fL (35.1-46.3); Red Blood Cell Count 4.81 M/mm3 (4.30-5.90); White Blood Cell Count 19.52 K/mm3 (4.00-11.30)
[2020-06-29 17:35] LABS: Bacteria Many /hpf; Red Blood Cells, Urine 50-100 /hpf (0-2); Squamous Epithelial Cells Rare /hpf (Few); White Blood Cells, Urine TNTC /hpf (0-5)
[2020-06-29 17:36] LABS: Alanine Aminotransfer (ALT/SGP 25 U/L (12-78); Albumin, Blood 3.2 g/dL (3.4-5.0); Albumin/Globulin Ratio 0.8 (0.8-1.8); Alk Phos 73 U/L (50-136); Anion Gap 5 mmol/L (6-16); Aspartate Aminotrans (AST/SGOT 15 U/L (12-37); Bilirubin, Total 0.3 mg/dL (0.1-1.0); Blood Urea Nitrogen 38 mg/dL (8-24); Bun/Creatinine Ratio 31.9 (12.0-20.0); CO2, Blood 28 mmol/L (21-32); Calcium, Blood 9.4 mg/dL (8.5-10.1); Chloride, Blood 97 mmol/L (98-108); Creatinine, Blood 1.19 mg/dL (0.60-1.20); Globulin, Blood 4.2 g/dL (2.2-4.0); Glomerular Filtration Rate >60 (60-); Glucose, Blood 290 mg/dL (70-99); Potassium, Blood 4.6 mmol/L (3.5-5.5); Sodium, Blood 130 mmol/L (136-145); Total Protein, Blood 7.4 g/dL (6.4-8.2); Troponin I <0.015 ng/mL (0.000-0.040)
[2020-06-29 17:54] LABS: Influenza A, PCR NEGATIVE (NEGATIVE); Influenza B, PCR NEGATIVE (NEGATIVE); Resp Syncytial Virus, PCR NEGATIVE (NEGATIVE); SARS-Cov-2 (COVID-19) PCR, MMC NEGATIVE (NEGATIVE)
--- NOTE | 2020-06-30 04:23 | NUR ---
LEAD WORKER OF HOUSEKEEPING AND LAUNDRY SUMMARY PT HAS BEEN ALERT AND ORIENTED X4 THROUGHOUT THE SHIFT AND WAS ABLE TO PROVIDE HIS HISTORY. THE PT HAS DENIED ANY PAIN THIS SHIFT AND REMAINED AFEBRILE. VITAL SIGNS HAVE BEEN STABLE AND HE HAS REMAINED NSR IN THE 90'S THROUGH OUT THE NIGHT. PT HAS PRODUCED OVER 1200ML OF CLOUDY URINE VIA ABDULLAHI CATHETER THIS SHIFT. LR RUNNING AT 100ML/HR. PT O2 SATS >92% ON RM AIR. WILL REPORT TO DAYSSDFT RN, ADRIANE.
[2020-06-30 04:32] LABS: BASOPHILS ABSOLUTE AUTO 0.06 K/mm3 (0.00-0.23); BASOPHILS PERCENT AUTO 0 % (0-2); EOSINOPHILS ABSOLUTE AUTO 0.01 K/mm3 (0.00-0.68); EOSINOPHILS PERCENT AUTO 0 % (0-6); Hemoglobin 12.5 g/dL (13.5-17.5); IMMATURE GRAN ABSOLUTE AUTO 0.08 K/mm3 (0.00-0.10); IMMATURE GRAN PERCENT AUTO 0 % (0-1); LYMPHOCYTES ABSOLUTE AUTO 2.03 K/mm3 (0.84-5.20); LYMPHOCYTES PERCENT AUTO 11 % (21-46); MONOCYTES ABSOLUTE AUTO 1.51 K/mm3 (0.16-1.47); MONOCYTES PERCENT AUTO 8 % (4-13); Mean Corpuscular HGB 29.4 pg (26.0-34.0); Mean Corpuscular HGB Conc 32.1 g/dL (31.5-36.5); Mean Corpuscular Volume 92 fL (80-100); Mean Platelet Volume 9.1 fL (9.1-12.4); NEUTROPHILS ABSOLUTE AUTO 14.85 K/mm3 (1.96-9.15); NEUTROPHILS PERCENT AUTO 80 % (41-73); Platelet Count 406 K/mm3 (150-400); RDW Standard Deviation 43.2 fL (35.1-46.3); Red Blood Cell Count 4.25 M/mm3 (4.30-5.90); White Blood Cell Count 18.54 K/mm3 (4.00-11.30)
[2020-06-30 04:56] LABS: Anion Gap 5 mmol/L (6-16); Blood Urea Nitrogen 28 mg/dL (8-24); Bun/Creatinine Ratio 23.9 (12.0-20.0); CO2, Blood 29 mmol/L (21-32); Calcium, Blood 8.6 mg/dL (8.5-10.1); Chloride, Blood 103 mmol/L (98-108); Creatinine, Blood 1.17 mg/dL (0.60-1.20); Glomerular Filtration Rate >60 (60-); Glucose, Blood 257 mg/dL (70-99); Potassium, Blood 4.2 mmol/L (3.5-5.5); Sodium, Blood 137 mmol/L (136-145)
--- NOTE | 2020-06-30 07:32 | NUR ---
ASSUMED CARE: PT RESTING QUIETLY AT THIS TIME. NSR WITH BBB ON TELE. NO ACUTE NEEDS OR CONCERNS.
--- NOTE | 2020-06-30 18:04 | NUR ---
SHIFT SUMMARY: PT CURRENTLY MEDICAL STATUS. HE IS ALERT, ORIENTED, PLEASANT AND COOPERATIVE. CHRONIC ABDULLAHI IN PLACE, CONTINUES TO PUT OUT YELLOW URINE, CLOUDY AT TIMES. MEDICATED X1 FOR CHRONIC BACK PAIN. PT'S DAUGHTER WAS AT BEDSIDE AND WAS GIVEN AN UPDATE. NO FURTHER NEEDS OR CONCERNS AT THIS TIME.
--- NOTE | 2020-07-01 05:04 | NUR ---
ASSEMBLY LINE SUPERVISOR SUMMARY PT TOOK FIRST DOSE OF AMBIEN AT 2100 AND SLEPT COMFORTABLY FOR MOST OF THE NIGHT. PT DID REPORT LOWER BACK PAIN AT THE START OF THE SHIFT AND WAS GIVEN HEATING PAD AND TYLENOL WHICH HE SAID RELEIVED HIS PAIN. PT IS AXO X4 BUT APPEARS DROWSY THIS EARLY AM. PT HAS LR RUNNING AT 100ML/HR AND CONTINUES TO PRODUCE VERY LARGE AMOUNTS OF CLOUDY URINE EACH SHIFT. WILL REPORT TO ANABELLA ANDERSON, ADRIANE.
--- NOTE | 2020-07-01 09:42 | NUR ---
ASSUMED CARE FROM NOC RN, MORNING UPDATE PT WAS AWAKE AND PARTICIPATED IN MORNING REPORT FROM NOC RN. VS STABLE, PT ON RA. PT REPORTS PAIN IN HIS BACK AND REQUESTED TYLENOL PER EMAR, IT WAS ADMINISTERED. PT WAS ABLE TO TAKE ALL OTHER MORNING MEDICATIONS WITHOUT ISSUES. PT IS ALERT AND ORIENTED. PT HAS A PATENT ABDULLAHI THAT IS DRAINING, IT IS A CHRONIC ABDULLAHI THAT WAS REPLACED UPON ADMISSION ACCORDING TO RN WINTER REPORT. PT IS STABLE AND SITTING IN THE CHAIR IN HIS ROOM WATCHING TV.
--- NOTE | 2020-07-01 17:32 | NUR ---
SHIFT SUMMARY PT SPENT PART OF THE DAY SITTING IN THE CHAIR AND THE OTHER PART OF THE DAY RESTING IN BED. PT REPORTS LOWER BACK PAIN THAT IS RELIEVED WITH REPOSITIONING, THE HEATING PAD AND TYLENOL. PT HAS CHRONIC ABDULLAHI THAT IS PATENT AND DRAINING WELL. PT IS ALERT AND ORIENTED AND CURRENTLY IN HIS ROOM HAVING DINNER
--- NOTE | 2020-07-01 18:40 | NUR ---
PATIENT ARRIVED FROM PCU AT 1825 VIA W/C. A&O X 3, PLEASANT. TRANSFERRED TO BED INDEPENDENTLY. DENIES PAIN. CALL LIGHT AND BELONGINGS IN REACH. CONTACT ISOLATION FOR ESBL AND ECOLI IN URINE.
--- NOTE | 2020-07-01 18:54 | NUR ---
TRANSFERRED CARE TO [facility] PT WAS TRANSFERRED TO THE MEDICAL UNIT AT APPROXIMATELY 1822. PT WAS TRANSFERRED VIA WHEELCHAIR ACCOMPANIED BY [employer] SALES CONSULTANT. PT WAS TRANSFERRED WITH ALL PERSONAL BELONGINGS, ABDULLHAI CATH DRAINING AND PATENT, CHART AND HUMALOG INSULIN PEN. REPORT WAS GIVEN OVER PHONE TO MEDICAL RN ASSUMING CARE.
--- NOTE | 2020-07-02 04:32 | NUR ---
ZIPPER TRIMMER HAND SUMMARY PT A&OX4, ABLE TO MAKE NEEDS KNOWN. PLEASANT AND COOPERATIVE TO CARE. PT MEDICATED FOR CHRONIC BACK PAIN PER EMAR. NO C/O CP, SOB OR N&V. PT CALM AND RESTED IN BED T/O SHIFT. PT CONT ON IV ABX, NO ASE NOTED. PT IS SBA TO THE BATHROOM. NO ACUTE CHANGES NOTED TO PT THIS SHIFT. BED AT LOWEST POSITION. CALL LIGHT WITHIN REACH.
[2020-07-02] MEDS ORDERED: ACIDOPHILUS1 EAC1 PO (11:39)
[2020-07-02] MEDS ORDERED: DOXY100 PO (11:40)
[2020-07-02] MEDS ORDERED: VITAMIN D31000 UNI1 PO (11:40)
[2020-07-02] MEDS ORDERED: ZOLP5 PO (11:41)
--- NOTE | 2020-07-02 15:34 | NUR ---
PATIENT DISCHARGED TO HOME WITH DAUGHTER. IV SALINE LOCK REMOVED WITHOUT INCIDENT. DEMONSTRATED DAILY CATHETER CARE TO PATIENT, GAVE HIM PRINTED MATERIALS. CHANGED FROM REGULAR DRAINAGE BAG TO LEG BAG PER HIS REQUEST. GAVE PRINTED AND VERBAL INSTRUCTIONS ON DAILY CATHETER CARE, BAG CARE, AND CHANGING FROM LEG BAG TO OVERNIGHT BAG. MADE FOUR RUN THROUGHS WITH THIS INFORMATION BEFORE PATIENT ABLE TO ANSWER QUESTIONS CORRECTLY. GAVE REPLACEMENT OVERNIGHT DRAINAGE BAG. DISCUSSED ALL MEDICATIONS, GAVE WRITTEN RX FOR AMBIEN. PATIENT VERBALIZED ALL INSTRUCTIONS. OFF UNIT VIA W/C AT 1240.
[2020-09-13] MEDS ORDERED: ALPR.5 PO (20:41)
[2020-09-13] MEDS ORDERED: LOSARTAN-HCTZ1 EACH PO (20:41)
[2020-09-13] MEDS ORDERED: Norco 5-325 Ta1 EACH PO (20:42)
[2020-09-13] MEDS ORDERED: ONDA4 PO (20:43)
[2020-09-13] MEDS ORDERED: CODACE30 PO (20:44)
[2020-09-15] MEDS ORDERED: FENTANYL1 EA10 TOP (11:09)
[2020-09-15] MEDS ORDERED: LORA1 PO (11:09)
[2020-09-15] MEDS ORDERED: MORP20L PO (11:10)
== END 2020-07-02 12:40 | disposition home health service (06) | DRG 698 ==
LOC: ER 15:17 → ERHOLD 18:14 → PCU 20:17 → MEDS 07-01 18:31
PROVIDERS: Emergency Medicine; ADMIT Internal Medicine
DX: T83.592A Infection and inflammatory reaction due to indwelling ureteral stent, initial encounter (principal); A41.51 Sepsis due to Escherichia coli [E. coli]; G92 Toxic encephalopathy; R65.20 Severe sepsis without septic shock; N39.0 Urinary tract infection, site not specified; E87.1 Hypo-osmolality and hyponatremia; E11.65 Type 2 diabetes mellitus with hyperglycemia; Z20.822 Contact with and (suspected) exposure to COVID-19; E78.5 Hyperlipidemia, unspecified; I12.9 Hypertensive chronic kidney disease with stage 1 through stage 4 chronic kidney disease, or unspecified chronic kidney disease; E11.22 Type 2 diabetes mellitus with diabetic chronic kidney disease; N18.31 Chronic kidney disease, stage 3a; Z66 Do not resuscitate; Z85.46 Personal history of malignant neoplasm of prostate; N40.1 Benign prostatic hyperplasia with lower urinary tract symptoms; E03.9 Hypothyroidism, unspecified; R54 Age-related physical debility; Z79.4 Long term (current) use of insulin; F32.9 Major depressive disorder, single episode, unspecified
CPT/HCPCS: 0241U; 36415; 51702; 71045; 80048; 80053; 81001; 82947; 83605; 83880; 84132; 84484; 85025; 87040; 87077; 87086; 87186; 93005; 93010; 96361-59; 96365-59; 99285-25; A9270; J0696; J1650; J2185; J7030; J7120

== ENCOUNTER 2020-07-18 06:45 | Emergency (ER) | payer MEDICARE, BC ==
[~2020-07-18] VITALS: Ht 170.2 cm; Wt 74.8 kg
[~2020-07-18 06:45] MED LIST changes: +ACIDOPHILUS1 EAC1 PO; +DOXY100 PO; +VITAMIN D31000 UNI1 PO; +ZOLP5 PO
[2020-07-18 07:42] LABS: Source, Urine Catheter
[2020-07-18 07:47] LABS: Appearance, Urine Clear (Clear); Bilirubin, Urine Neg (Neg); Blood, Urine 5+ (Neg); Color, Urine Yellow (P-Yellow); Glucose Qualitative, Urine 1+ (Neg); Ketones, Urine Neg (Neg); Leukocyte Esterase, Urine 3+ (Neg); Nitrite, Urine Neg (Neg); Protein, Urine 2+ (Neg); Specific Gravity, Urine 1.015 (1.003-1.022); Urobilinogen, Urine NORM (Normal)
[2020-07-18 08:19] LABS: Red Blood Cells, Urine TNTC /hpf (0-2)
[2020-07-18 08:20] LABS: Bacteria Few /hpf; Squamous Epithelial Cells Rare /hpf (Few)
[2020-07-18 08:21] LABS: Renal Epithelial Few /hpf (0-Rare)
[2020-07-18] MEDS ORDERED: CIPR500 PO (08:26)
[2020-09-13] MEDS ORDERED: LOSARTAN-HCTZ1 EACH PO (20:41)
[2020-09-13] MEDS ORDERED: ALPR.5 PO (20:41)
[2020-09-13] MEDS ORDERED: Norco 5-325 Ta1 EACH PO (20:42)
[2020-09-13] MEDS ORDERED: ONDA4 PO (20:43)
[2020-09-13] MEDS ORDERED: CODACE30 PO (20:44)
[2020-09-15] MEDS ORDERED: LORA1 PO (11:09)
[2020-09-15] MEDS ORDERED: FENTANYL1 EA10 TOP (11:09)
[2020-09-15] MEDS ORDERED: MORP20L PO (11:10)
== END 2020-07-18 08:45 | disposition home or self-care (01) ==
LOC: ER 06:45
PROVIDERS: Emergency Medicine
DX: N39.0 Urinary tract infection, site not specified (principal); R33.9 Retention of urine, unspecified; E11.9 Type 2 diabetes mellitus without complications; I10 Essential (primary) hypertension; E03.9 Hypothyroidism, unspecified; Z96.0 Presence of urogenital implants; Z79.899 Other long term (current) drug therapy; Z79.4 Long term (current) use of insulin
CPT/HCPCS: 51702; 51798; 81001; 87086; 99283; A9270

== ENCOUNTER 2020-08-31 15:16 | Emergency (ER) | payer MEDICARE, BC ==
[~2020-08-31] VITALS: Ht 170.2 cm; Wt 70.3 kg
[2020-08-31] MEDS ORDERED: LANTUS SOL100 UNIT/1 SC (15:50)
[2020-08-31 15:55] LABS: BASOPHILS ABSOLUTE AUTO 0.06 K/mm3 (0.00-0.23); BASOPHILS PERCENT AUTO 0 % (0-2); EOSINOPHILS ABSOLUTE AUTO 0.16 K/mm3 (0.00-0.68); EOSINOPHILS PERCENT AUTO 1 % (0-6); Hematocrit 44.5 % (37.0-53.0); IMMATURE GRAN PERCENT AUTO 1 % (0-1); LYMPHOCYTES ABSOLUTE AUTO 2.84 K/mm3 (0.84-5.20); LYMPHOCYTES PERCENT AUTO 21 % (21-46); MONOCYTES ABSOLUTE AUTO 1.29 K/mm3 (0.16-1.47); MONOCYTES PERCENT AUTO 10 % (4-13); Mean Corpuscular HGB 28.8 pg (26.0-34.0); Mean Corpuscular HGB Conc 33.7 g/dL (31.5-36.5); Mean Corpuscular Volume 85 fL (80-100); NEUTROPHILS ABSOLUTE AUTO 9.07 K/mm3 (1.96-9.15); NEUTROPHILS PERCENT AUTO 67 % (41-73); Platelet Count 448 K/mm3 (150-400); RDW Coefficient Variation 13.2 % (11.7-14.2); RDW Standard Deviation 40.8 fL (35.1-46.3); Red Blood Cell Count 5.21 M/mm3 (4.30-5.90); White Blood Cell Count 13.52 K/mm3 (4.00-11.30)
[2020-08-31 16:06] LABS: Source, Urine Clean Catch
[2020-08-31 16:15] LABS: Alanine Aminotransfer (ALT/SGP 12 U/L (12-78); Albumin, Blood 3.2 g/dL (3.4-5.0); Albumin/Globulin Ratio 0.7 (0.8-1.8); Alk Phos 79 U/L (50-136); Anion Gap 5 mmol/L (6-16); Aspartate Aminotrans (AST/SGOT 10 U/L (12-37); Bilirubin, Total 0.4 mg/dL (0.1-1.0); Blood Urea Nitrogen 18 mg/dL (8-24); Bun/Creatinine Ratio 19.6 (12.0-20.0); CO2, Blood 32 mmol/L (21-32); Calcium, Blood 9.3 mg/dL (8.5-10.1); Chloride, Blood 93 mmol/L (98-108); Creatinine, Blood 0.92 mg/dL (0.60-1.20); Globulin, Blood 4.9 g/dL (2.2-4.0); Glomerular Filtration Rate >60 (60-); Glucose, Blood 128 mg/dL (70-99); Potassium, Blood 3.7 mmol/L (3.5-5.5); Sodium, Blood 130 mmol/L (136-145); Total Protein, Blood 8.1 g/dL (6.4-8.2)
[2020-08-31 16:35] LABS: Appearance, Urine Hazy (Clear); Bilirubin, Urine Neg (Neg); Blood, Urine 2+ (Neg); Color, Urine Yellow (P-Yellow); Glucose Qualitative, Urine Neg (Neg); Ketones, Urine Neg (Neg); Leukocyte Esterase, Urine 3+ (Neg); Nitrite, Urine Neg (Neg); Protein, Urine 2+ (Neg); Specific Gravity, Urine 1.015 (1.003-1.022); Urobilinogen, Urine NORM (Normal); pH, Urine 6.5 (5.0-8.0)
[2020-08-31 16:52] LABS: White Blood Cells, Urine TNTC /hpf (0-5)
[2020-08-31 16:53] LABS: Bacteria Many /hpf; Squamous Epithelial Cells Few /hpf (Few)
[2020-08-31] MEDS ORDERED: Macrobid 100 M100 MG PO (19:05)
== END 2020-08-31 19:23 | disposition home or self-care (01) ==
LOC: ER 15:16
PROVIDERS: Emergency Medicine
DX: N39.0 Urinary tract infection, site not specified (principal); K86.89 Other specified diseases of pancreas
CPT/HCPCS: 36415; 74177; 80053; 81001; 83690; 85025; 87077; 87086; 87186; 96365; 96375; 99284-25; J1170; J2185; J2405; J7030; Q9967

== ENCOUNTER → 2020-09-07 | Emergency (ER) | payer MEDICARE, BC ==
[~2020-09-07] MED LIST changes: +CODACE30 PO; +LANTUS SOL100 UNIT/1 SC; +LOSARTAN-HCTZ1 EACH PO; +Macrobid 100 M100 MG PO; +ONDA4 PO
== END ==
LOC: ER 12:30
DX: Z04.89 Encounter for examination and observation for other specified reasons (principal); Z53.21 Procedure and treatment not carried out due to patient leaving prior to being seen by health care provider